=== PATIENT | male | born 1950 | race African-American/Black ===

== ENCOUNTER 2019-12-30 00:17 | Outpatient (CLI) | payer MEDICARE, SELFPAY ==
[2019-12-30 19:29] LABS: SARS-CoV-2 RNA PCR Negative
== END 2019-12-30 00:18 | disposition home or self-care (01) ==
LOC: ANHCOVIDDT 00:17
PROVIDERS: PCP Internal Medicine; Visit Provider Internal Medicine Gastroenterology
DX: Z01.812 Encounter for preprocedural laboratory examination (principal); Z20.828 Contact with and (suspected) exposure to other viral communicable diseases
CPT/HCPCS: 87635; C9803; U0003

== ENCOUNTER 2020-01-02 01:05 | Day surgery (SDC) | payer MEDICARE, SELFPAY ==
[2019-12-25 13:40] VITALS: BMI 20.9
[2020-01-02 07:46] VITALS: BP 115/92; PULSE 72; RESP 20; TEMP 36.7; O2SAT 96
--- NOTE | 2020-01-02 07:55 | WPDANESEPPF ---
Anes - Initial Pre Proc Eval Procedure: Operation Date: 01/02/20 09:00 Proposed Procedures p Colonoscopy - Davey Sandra MD Date/Time: 01/02/20 07:55 Surgeon: Dvaey Sandra MD Pre Op Diagnosis: rectal polyp Patient Data Age: 69 Gender: M Height: 6 ft 2 in Weight: 71.3 kg Last Vital Signs Temp 98.1 F 01/02/20 07:46 Pulse 72 01/02/20 07:46 Resp 20 01/02/20 07:46 BP 115/92 H 01/02/20 07:46 Pulse Ox 96 01/02/20 07:46 Allergies Allergy/AdvReac Type Severity Reaction Status Date / Time No Known Allergies Allergy Verified 01/02/20 07:44 Home Medications Medication Instructions Recorded Confirmed Type aspirin 325 mg tablet 325 mg PO DAILY 11/06/19 12/25/19 History yutqmfyy-wkw-tddit acid 300 1 tablet PO DAILY 11/06/19 12/25/19 History mcg-lycopene 600 mcg-lutein 300 mcg tablet atorvastatin 40 mg PO DAILY 12/25/19 12/25/19 History Patient hx anesthesia problems: none Family hx anesthesia problems: none PMFSH Past Medical History Medical History (Updated 11/16/19 @ 14:22 by Davey Sandra MD) Colon cancer CVA (cerebral vascular accident) Dysplastic polyp of rectum Endocarditis Essential (primary) hypertension History of pulmonary embolism History of rectal polyps History of stroke with residual deficit Surgical History Surgical History (Updated 05/01/19 @ 11:31 by Sandra Queen [facility]) S/P colorectal surgery, follow-up exam Family History Family History (Updated 05/05/18 @ 08:41 by DOCTOR UNKNOWN) Mother Cerebrovascular accident Social History Social History Smoking status: Never smoker Second hand tobacco smoke exposure: Yes Alcohol intake: current Gender identity (if verbalized by the patient): Male Anes - Eval Final PreProcedure Day of Procedure 01/02/20 07:55 Patient weight: normal Heart: regular rate and rhythm Lungs: clear to auscultation Airway: Mallampati scale class II Neurological: alert and oriented Last oral intake: >/= 8 hours ASA classification: III Emergent: no Anesthetic plan: proceed Anesthesia type and monitoring: general GIVS and standard monitoring Informed Consent: The patient's anesthetic plan and its attendant risks and benefits were discussed with the patient/family/POA. Questions were solicited and answers provided to the satisfaction of the patient/family/POA.
[2020-01-02] MEDS: LACTATED RINGERS 1,000 ML 150 ML IV CONT (07:58)
--- NOTE | 2020-01-02 08:40 | PM.HPGS ---
History of Present Illness History of Present Illness Consent: Risks, benefits, and alternatives have been discussed and questions answered. Patient agrees to proceed with procedure. Chief complaint: rectal polyp Narrative: Allen Webb is a 69 year old male with large rectal mass (high grade dysplasia) removed by CRS 2019, here to reassess with colonoscopy Review of Systems Constitutional: Constitutional: Denies headache(s) and Denies weakness Eyes: Eyes: Denies blurry vision ENT: Reports Normal hearing present, Denies headache(s) and Denies neck pain Cardiovascular: Cardiovascular: Denies chest pain and Denies dyspnea Respiratory: Respiratory: Denies dyspnea Gastrointestinal: Gastrointestinal: Reports no additional gastrointestinal complaints Genitourinary: Genitourinary: Denies dysuria Musculoskeletal: Musculoskeletal: Denies neck pain Integumentary/Breasts: Skin/Breast: Denies dry skin Neurologic: Reports Normal hearing present, Denies headache(s) and Denies weakness Psychiatric: Psychiatric: Denies anxiety Endocrine: Endocrine: Denies change in body appearance Hematologic/Lymphatic: Hematologic/Lymphatic: Denies easy bleeding Allergic/Immunologic: Allergic/Immunologic: Denies urticaria PMFSH Past Medical History Medical History (Updated 11/16/19 @ 14:22 by Davey Sandra MD) Colon cancer CVA (cerebral vascular accident) Dysplastic polyp of rectum Endocarditis Essential (primary) hypertension History of pulmonary embolism History of rectal polyps History of stroke with residual deficit Surgical History Surgical History (Updated 05/01/19 @ 11:31 by Sandra Queen CMA) S/P colorectal surgery, follow-up exam Family History Family History (Updated 05/05/18 @ 08:41 by DOCTOR UNKNOWN) Mother Cerebrovascular accident Social History Social History Smoking status: Never smoker Second hand tobacco smoke exposure: Yes Alcohol intake: current Gender identity (if verbalized by the patient): Male Meds Home Medications and Allergies Home Medications Medication Instructions Recorded Confirmed Type aspirin 325 mg tablet 325 mg PO DAILY 11/06/19 12/25/19 History msprgppn-fxo-jcfsr acid 300 1 tablet PO DAILY 11/06/19 12/25/19 History mcg-lycopene 600 mcg-lutein 300 mcg tablet atorvastatin 40 mg PO DAILY 12/25/19 12/25/19 History Allergies Allergy/AdvReac Type Severity Reaction Status Date / Time No Known Allergies Allergy Verified 01/02/20 07:44 Vital Signs Vital Signs - 24 hr 01/02/20 07:46 Temperature 98.1 F Pulse Rate 72 Respiratory Rate 20 Blood Pressure 115/92 H Pulse Oximetry 96 Exam Const: General: comfortable and no acute distress HENMT: General nose exam: Normal nares present Eyes: General: appearance normal, both eyes and all related structures Neck: Neck: no JVD Resp: Auscultation: clear to auscultation bilaterally Cardio: Rate: regular rate Rhythm: regular rhythm GI: Inspection: non-distended GI Palp: Yes Soft to palpation Skin: General skin exam: normal color Neuro: General: gait normal Speech: normal speech Extrem: General: normal to inspection Psych: Mental Status: mental status grossly normal Assessment and Plan Assessment and plan (1) Dysplastic polyp of rectum: Code(s): K62.1 - Rectal polyp Status: Acute Assessment and Plan: will proceed with colonoscopy (2) History of stroke with residual deficit: Code(s): I69.30 - Unspecified sequelae of cerebral infarction Status: Acute
[2020-01-02 09:20] VITALS: BP 111/81; PULSE 79; RESP 17; O2SAT 96
[2020-01-02 09:30] VITALS: BP 112/80; PULSE 71; RESP 18; O2SAT 99
[2020-01-02 09:40] VITALS: BP 108/77; PULSE 68; RESP 17; O2SAT 100
== END 2020-01-02 09:53 | disposition home or self-care (01) ==
PROVIDERS: PCP Internal Medicine; Visit Provider Internal Medicine Gastroenterology
PROC: 0DJD8ZZ Inspection of Lower Intestinal Tract, Via Natural or Artificial Opening Endoscopic (ICD-10-PCS; CPT 45378; principal; 2020-01-02 09:00)
DX: D12.8 Benign neoplasm of rectum (principal); D12.5 Benign neoplasm of sigmoid colon; K62.89 Other specified diseases of anus and rectum; I10 Essential (primary) hypertension; Z86.73 Personal history of transient ischemic attack (TIA), and cerebral infarction without residual deficits; Z86.711 Personal history of pulmonary embolism; Z85.038 Personal history of other malignant neoplasm of large intestine
CPT/HCPCS: 45385; 88305; J2704; J7120

== ENCOUNTER 2021-06-06 11:52 | Outpatient (CLI) | payer MEDICARE, SELFPAY ==
--- NOTE | 2021-06-06 13:14 | ECHO_ITS ---
Patient Info Name: Allen Webb Age: 70 years : 1950 Gender: Male Ht: 74 in Wt: 165 lbs BSA: 1.97 m2 HR: 80 bpm BP: 129 / 95 mmHg Technical Quality: Fair Exam Date: 06/06/2021 1:31 PM Exam Location: [facility] Patient Status: Outpatient Admit Date: 06/06/2021 Staff Ordering Physician: Milton Wong DO Software Development Specialist: Elizabeth Vela RDCS Attending Provider: Milton Wong DO Referring Physician: Marvin MEDINA; Exam Type: CA echo doppler color flow Study Info Indications I38 - ENDOCARDITIS, VALVE UNSPECIFIED Complete two-dimensional, color flow and Doppler transthoracic echocardiogram is performed. Summary 1. Complete two-dimensional, color flow and Doppler transthoracic echocardiogram is performed. 2. Left ventricular chamber dimension is normal. 3. Left ventricular systolic function is normal, estimated at 55-60%. 4. The left ventricular diastolic function is grade I diastolic dysfunction. 5. E/e' 11 is mildly elevated. 6. Right atrial chamber dimension is severely enlarged. 7. There is trace aortic valve regurgitation. 8. Small calcification of anterior mitral valve leaflet suggests possible prior endocarditis. 9. Calcification of septal leaflet of tricuspid valve measuring 1.1 x 1.7 cm suggests prior endocarditis. Mild calcification of anterior leaflet noted. 10. There is mild tricuspid valve regurgitation. 11. No pulmonary hypertension, estimated pulmonary arterial systolic pressure is 30 mmHg. Left Ventricle E/e' 11 is mildly elevated. Left ventricular chamber dimension is normal. Left ventricular systolic function is normal, estimated at 55-60%. The left ventricular diastolic function is grade I diastolic dysfunction. Right Ventricle Right ventricular systolic function is normal and with normal TAPSE 2.1 cm. Right ventricular chamber dimension is normal. Left Atria Left atrial chamber dimension is normal. Right Atria Right atrial chamber dimension is severely enlarged. Aortic Valve The aortic valve is trileaflet. There is no aortic valve stenosis. There is trace aortic valve regurgitation. Pulmonic Valve There is no pulmonic regurgitation. Mitral Valve Small calcification of anterior mitral valve leaflet suggests possible prior endocarditis. There is no mitral valve stenosis. There is no mitral valve regurgitation. Tricuspid Valve Calcification of septal leaflet of tricuspid valve measuring 1.1 x 1.7 cm suggests prior endocarditis. Mild calcification of anterior leaflet noted. There is mild tricuspid valve regurgitation. No pulmonary hypertension, estimated pulmonary arterial systolic pressure is 30 mmHg. Pericardium/Pleural There is no pericardial effusion. Inferior Vena Cava Normal inferior vena cava with >50% collapse upon inspiration consistent with normal right atrial pressure, 5 mmHg. Aorta The aortic root size at the sinus of Valsalva is normal. Left Ventricular Outflow Tract Name Value Normal LVOT 2D LVOT Diameter 2.0 cm LVOT Doppler LVOT Peak Gradient 2 mmHg LVOT Mean Gradient 1 mmHg LVO
== END 2021-06-06 11:53 | disposition home or self-care (01) ==
LOC: ANHCARD 11:53
PROVIDERS: PCP Internal Medicine; Visit Provider Internal Medicine Cardiovascular Disease
DX: I38 Endocarditis, valve unspecified (principal); I51.7 Cardiomegaly
CPT/HCPCS: 93306

== ENCOUNTER 2022-07-23 09:59 | Outpatient (CLI) | payer MEDICARE, SELFPAY ==
[2022-07-23 19:19] LABS: Alanine Aminotransferase 100 U/L (6-50); Albumin Level 4.7 g/dL (3.5-5.1); Alkaline Phosphatase 75 U/L (38-126); Anion Gap 8 mmol/L (8-16); Aspartate Amino Transferase 86 U/L (17-59); Bilirubin,Total 0.6 mg/dL (0.2-1.3); Blood Urea Nitrogen 13 mg/dL (9-20); Calcium 9.5 mg/dL (8.4-10.2); Carbon Dioxide 31 mmol/L (22-30); Chloride 105 mmol/L (98-107); Cholesterol 203 mg/dL (0-200); Estimated Glomerular Filt Rate > 60; Glucose 105 mg/dL (65-110); HDL Direct 95 mg/dL; Potassium 4.8 mmol/L (3.4-5.0); Sodium 144 mmol/L (137-145); Triglycerides 53 mg/dL (<150)
[2022-07-23 19:30] LABS: LDL Cholesterol Direct 77 mg/dL
[2022-07-23 19:49] LABS: Prostate Specific Antigen 1.4 ng/mL (< OR = 4.0)
[2022-07-23 20:37] LABS: Basophils Percent Auto 0.6 % (0.2-1.2); Eosinophils Percent Auto 0.4 % (0-4.4); Hemoglobin 12.7 g/dL (14.0-18.0); Immature Granulocyte Absolute 0.02 K/mm3 (0.00-0.031); Immature Granulocyte Percent A 0.4 % (0-0.5); Lymphocytes Absolute Auto 1.69 K/mm3 (0.9-3.2); Lymphocytes Percent Auto 35.7 % (18.3-44.2); Mean Corpuscular Volume 80.9 fl (80-100); Mean Platelet Volume 12.3 fl (7.4-10.4); Monocytes Absolute Auto 0.4 K/mm3 (0.1-0.6); Neutrophils Absolute Auto 2.6 K/mm3 (1.3-6.7); Neutrophils Percent Auto 54.9 % (45.5-73.1); Nucleated Red Blood Cells Perc 0.4 % (0.0-0.2); Platelet Count Result 190 k/mm3 (150-375); Red Blood Count 5.07 M/mm3 (4.6-6.20); Red Cell Distribution Width 15.9 % (11.5-14.5); White Blood Count 4.7 K/mm3 (4.5-10.0)
== END 2022-07-23 10:00 | disposition home or self-care (01) ==
LOC: ANHGOSHLAB 10:00
PROVIDERS: PCP Internal Medicine; Visit Provider Clinical Nurse Specialist
DX: I10 Essential (primary) hypertension (principal); E78.5 Hyperlipidemia, unspecified; Z12.5 Encounter for screening for malignant neoplasm of prostate; F10.10 Alcohol abuse, uncomplicated
CPT/HCPCS: 36415; 80053; 80061; 84153; 85025; G0103

== ENCOUNTER 2022-08-03 10:01 | Outpatient (CLI) | payer MEDICARE, SELFPAY ==
--- NOTE | ~2022-08-03 | US_ITS ---
Limited Abdominal Sonogram: Real-time sonographic imaging of the right upper quadrant was performed. Clinical History: Abnormal liver transaminase levels Findings: The liver appears normal with no evidence of mass lesion or bile duct dilatation. Main por emir vein demonstrates normal direction of flow. The gallbladder is partially distended, and appears n ormal with no evidence of gallstone or wall thickening. The common bile duct measures 5 mm. The visu alized pancreas, aorta, and IVC are unremarkable. Impression: No significant abnormality seen. Reviewed, dictated and finalized at location M. Impression: No significant abnormality seen.
== END 2022-08-03 10:02 | disposition home or self-care (01) ==
PROVIDERS: PCP Internal Medicine; Visit Provider Clinical Nurse Specialist
DX: R74.01 Elevation of levels of liver transaminase levels (principal); F10.10 Alcohol abuse, uncomplicated
CPT/HCPCS: 76705

== ENCOUNTER 2023-03-17 01:29 | Day surgery (SDC) | payer MEDICARE, SELFPAY ==
[2023-03-12 15:03] VITALS: BMI 20.7
--- NOTE | 2023-03-15 09:57 | SUR.PREOP ---
Patient called regarding upcoming procedure. Reviewed preop instructions, appointment times, and procedure prep.
--- NOTE | 2023-03-15 14:32 | PC.NURSE ---
Chart reviewed by joseph Huntley planned with procedure on 03/17/2023
[2023-03-17 11:25] VITALS: BP 151/110; PULSE 103; RESP 18; TEMP 36.5; O2SAT 97
[2023-03-17] MEDS: LACTATED RINGERS 1,000 ML 150 ML IV CONT (11:38)
--- NOTE | 2023-03-17 12:46 | WPDHPUPDATE1 ---
History and Physical Update Update Date/Time: 03/17/23 12:46 History and Physical has been reviewed, including an updated exam of the patient. There are NO changes in the patient's condition. Risks, benefits, and alternatives have been discussed and questions answered. Patient agrees to proceed with procedure.
[2023-03-17 13:40] VITALS: BP 127/83; PULSE 89; RESP 22; O2SAT 96
[2023-03-17 13:50] VITALS: BP 118/85; PULSE 72; RESP 21; O2SAT 98
[2023-03-17 14:00] VITALS: BP 134/93; PULSE 81; RESP 19; O2SAT 98
== END 2023-03-17 14:55 | disposition home or self-care (01) ==
PROVIDERS: PCP Internal Medicine; Visit Provider Internal Medicine Gastroenterology
PROC: 0DJD8ZZ Inspection of Lower Intestinal Tract, Via Natural or Artificial Opening Endoscopic (ICD-10-PCS; CPT 45378; principal; 2023-03-17 13:00)
DX: Z09 Encounter for follow-up examination after completed treatment for conditions other than malignant neoplasm (principal); D12.8 Benign neoplasm of rectum; I10 Essential (primary) hypertension; I69.30 Unspecified sequelae of cerebral infarction; Z85.038 Personal history of other malignant neoplasm of large intestine; Z86.711 Personal history of pulmonary embolism
CPT/HCPCS: 45385; 88305; J2704; J7120

== ENCOUNTER 2023-06-22 00:30 | Day surgery (SDC) | payer MEDICARE, SELFPAY ==
[2023-06-03 08:40] VITALS: BMI 22.4
[2023-06-22 09:52] VITALS: BP 140/94; PULSE 112; RESP 18; TEMP 36; O2SAT 99; BMI 21.7
--- NOTE | 2023-06-22 10:10 | PM.HPGS ---
History of Present Illness History of Present Illness Consent: Risks, benefits, and alternatives have been discussed and questions answered. Patient agrees to proceed with procedure. Chief complaint: History colon polyps Narrative: Allen Webb is a 72 year old male here for sigmoidoscopy, last colonoscopy 03/2023 found recurrent polyp (TVA but no dysplasia). He had originally on 05/2018 large rectal mass after had rectal bleeding and Strep bovis bacteremia/endocarditis (first colonoscopy), bx TVA with high grade dysplasia- he was treated at [facility] and evaluated later by [facility]S with proctoscopy at [facility], EUS rectum no deep invasion. He also had stroke and PE treated with eliquis. I did a colonoscopy 2019 that showed high-grade dysplasia of distal rectal polyp and then he was supposed to follow-up with surgery again, then admitted to [facility] with rectal bleeding, another colonoscopy by Dr De Anda showed 2 cm polyp lesion with bleeding near the anal verge again, treated with APC. Another colonoscopy 11/2021 at [facility] by [facility]S, found recurrent rectal polyp and removed with snare and hot forceps biopsy, could not pass transverse because of looping finally had last colonoscopy by me 03/2023 (polyp removed, here to reassess for remnant polyp) Review of Systems Constitutional: Constitutional: Denies headache(s) and Denies weakness Eyes: Eyes: Denies blurry vision ENT: Reports Normal hearing present, Denies headache(s) and Denies neck pain Cardiovascular: Cardiovascular: Denies chest pain and Denies dyspnea Respiratory: Respiratory: Denies dyspnea Gastrointestinal: Gastrointestinal: Reports no additional gastrointestinal complaints Genitourinary: Genitourinary: Denies dysuria Musculoskeletal: Musculoskeletal: Denies neck pain Integumentary/Breasts: Skin/Breast: Denies dry skin Neurologic: Reports Normal hearing present, Denies headache(s) and Denies weakness Psychiatric: Psychiatric: Denies anxiety Endocrine: Endocrine: Denies change in body appearance Hematologic/Lymphatic: Hematologic/Lymphatic: Denies easy bleeding Allergic/Immunologic: Allergic/Immunologic: Denies urticaria PMFSH Past Medical History Medical History Adenomatous colon polyp Colon cancer CVA (cerebral vascular accident) Dysplastic polyp of rectum Endocarditis Essential (primary) hypertension History of pulmonary embolism History of rectal polyps History of stroke with residual deficit Rectal bleeding Surgical History Surgical History S/P colorectal surgery, follow-up exam Family History Family History Mother Cerebrovascular accident Social History Social History Social History: Caffeine-2 cups of coffee, Soda Smoking status: Never smoker Second hand tobacco smoke exposure: Yes Alcohol intake: current Drinks per week: 35 Alcohol use details: 2 24oz cans a day when he has the money and half pint a whiskey over the span of a week Substance use: never Substance use type: does not use Lack of Transportation: No Lack of Food: Never True Current Housing: I Have Housing Concerned About Future Housing: No Difficulty Paying Gas/Electric Bills: No Difficulty Paying for Meds: No Currently Unemployed: No Education: High School Diploma/GED Difficulty w/ Childcare or Family Care: No Living arrangements: alone Gender identity (if verbalized by the patient): Male Spiritual care concerns: No Meds Home Medications and Allergies Home Medications Medication Instructions Recorded Confirmed Type No Home Medications 06/03/23 06/22/23 History Allergies Allergy/AdvReac Type Severity Reaction Status Date / Time No Known Allergies Allergy Verified 06/22/23 10:05 Exam Const: Ge
[2023-06-22] MEDS: LACTATED RINGERS 1,000 ML 150 ML IV CONT ×2 (10:18→11:14)
[2023-06-22] MEDS: GENTAMICIN 80MG/SOD CHL 50 ML 80 MG/50 ML BAG 100 MG IVPB (10:20)
--- NOTE | 2023-06-22 10:30 | WPDANESEPPF ---
Anes - Initial Pre Proc Eval Procedure: Operation Date: 06/22/23 11:00 Proposed Procedures p Flexible Sigmoidoscopy - Davey Sandra MD Date/Time: 06/22/23 10:30 Surgeon: Davey Sandra MD Pre Op Diagnosis: History colon polyps Patient Data Age: 72 Gender: M Height: 1.88 m Weight: 76.7 kg Last Vital Signs Temp 96.8 F L 06/22/23 09:52 Pulse 112 H 06/22/23 09:52 Resp 18 06/22/23 09:52 BP 140/94 H 06/22/23 09:52 Pulse Ox 99 06/22/23 09:52 O2 Del Method Room Air 06/22/23 09:52 Allergies Allergy/AdvReac Type Severity Reaction Status Date / Time No Known Allergies Allergy Verified 06/22/23 10:05 Home Medications Medication Instructions Recorded Confirmed Type No Home Medications 06/03/23 06/22/23 History Patient hx anesthesia problems: none Family hx anesthesia problems: none Results Review: All pre-operative results and documents have been reviewed as part of the pre-operative evaluation. [facility] Past Medical History Medical History Adenomatous colon polyp Colon cancer CVA (cerebral vascular accident) Dysplastic polyp of rectum Endocarditis Essential (primary) hypertension History of pulmonary embolism History of rectal polyps History of stroke with residual deficit Rectal bleeding Surgical History Surgical History S/P colorectal surgery, follow-up exam Family History Family History Mother Cerebrovascular accident Social History Social History Social History: Caffeine-2 cups of coffee, Soda Smoking status: Never smoker Second hand tobacco smoke exposure: Yes Alcohol intake: current Drinks per week: 35 Alcohol use details: 2 24oz cans a day when he has the money and half pint a whiskey over the span of a week Substance use: never Substance use type: does not use Lack of Transportation: No Lack of Food: Never True Current Housing: I Have Housing Concerned About Future Housing: No Difficulty Paying Gas/Electric Bills: No Difficulty Paying for Meds: No Currently Unemployed: No Education: High School Diploma/GED Difficulty w/ Childcare or Family Care: No Living arrangements: alone Gender identity (if verbalized by the patient): Male Spiritual care concerns: No Anes - Eval Final PreProcedure Day of Procedure 06/22/23 10:30 Patient weight: normal Heart: regular rate and rhythm Lungs: clear to auscultation Neurological: alert and oriented Last oral intake: >/= 8 hours Emergent: no Anesthetic plan: proceed Anesthesia type and monitoring: general GIVS and standard monitoring Results Review: All pre-operative results and documents have been reviewed as part of the pre-operative evaluation. Informed Consent: The patient's anesthetic plan and its attendant risks and benefits were discussed with the patient/family/POA. Questions were solicited and answers provided to the satisfaction of the patient/family/POA.
[2023-06-22] MEDS: AMPICILLIN 2 GM/NS 100 ML 2 GM/100 ML BAG IVPB (10:38)
[2023-06-22 11:15] VITALS: BP 98/67; PULSE 102; RESP 29; O2SAT 97
[2023-06-22 11:25] VITALS: BP 121/90; PULSE 95; RESP 20; O2SAT 99
[2023-06-22 11:35] VITALS: BP 112/79; PULSE 84; RESP 21; O2SAT 99
== END 2023-06-22 12:23 | disposition home or self-care (01) ==
PROVIDERS: PCP Internal Medicine; Visit Provider Internal Medicine Gastroenterology
PROC: 0DJD8ZZ Inspection of Lower Intestinal Tract, Via Natural or Artificial Opening Endoscopic (ICD-10-PCS; CPT 45330; principal; 2023-06-22 11:00)
DX: D12.8 Benign neoplasm of rectum (principal); I10 Essential (primary) hypertension; Z86.73 Personal history of transient ischemic attack (TIA), and cerebral infarction without residual deficits; Z86.711 Personal history of pulmonary embolism; Z85.038 Personal history of other malignant neoplasm of large intestine
CPT/HCPCS: 45338; 88305; J0290; J1580; J2704; J7120